=== PATIENT | female | born 1960 | race Caucasian/White ===

== ENCOUNTER 2021-11-14 11:14 | Emergency (ER) | payer MEDICARE, SELFPAY ==
[2021-11-14 12:37] LABS: HEMOGLOBIN 14.5 gm/dl (12.3-15.3); RED BLOOD COUNT 4.66 M/UL (4.00-5.10); WHITE BLOOD COUNT 13.7 K/UL (4.5-11.0)
[2021-11-14 12:59] LABS: BUN/CREATININE RATIO 17 (0-10)
[2021-11-14 17:14] LABS: HEMOGLOBIN 13.7 gm/dl (12.3-15.3); RED BLOOD COUNT 4.42 M/UL (4.00-5.10); WHITE BLOOD COUNT 14.8 K/UL (4.5-11.0)
[2021-11-14 17:44] LABS: BUN/CREATININE RATIO 14 (0-10)
[2021-11-14] MEDS ORDERED: FLOMAX0.4 MG PO (20:46)
[2021-11-14] MEDS ORDERED: HYDROCODONE-AC1 EACH PO (20:51)
== END 2021-11-14 21:32 | disposition home or self-care (01) ==
LOC: ER1 11:14
PROVIDERS: Nurse Practitioner; Physician Assistant Medical
DX: N13.2 Hydronephrosis with renal and ureteral calculous obstruction (principal); F17.210 Nicotine dependence, cigarettes, uncomplicated; Z87.442 Personal history of urinary calculi
CPT/HCPCS: 80048; 80053; 81001; 85025; 96374; 96375; 96376; 99284; J1170; J1885; J2270